=== PATIENT | female | born 1965 | race Two or more races ===

== ENCOUNTER 2016-10-09 04:08 | Emergency (ER) | payer OTHER ==
[~2016-10-09] VITALS: Ht 165.1 cm; Wt 72.6 kg
[~2016-10-09 04:08] MED LIST: OLME1TAB3 PO; SUMA5SPR
[2016-10-09 04:12] VITALS: BP 146/92
[2016-10-09] MEDS ORDERED: IBUPROFEN 400 MG TABLET ONE (04:28)
[2016-10-09] MEDS ORDERED: IBUPROFEN 400 MG TABLET PO ONE (04:30)
[2016-10-09] MEDS ORDERED: HYDROCODONE/APAP 5/325MG 1 EACH TABLET PO ONE (05:30)
== END 2016-10-09 05:29 | disposition home or self-care (01) ==
LOC: ER 04:13
DX: S52.501A Unspecified fracture of the lower end of right radius, initial encounter for closed fracture (principal); G43.909 Migraine, unspecified, not intractable, without status migrainosus; W01.0XXA Fall on same level from slipping, tripping and stumbling without subsequent striking against object, initial encounter; Y93.89 Activity, other specified; Y92.009 Unspecified place in unspecified non-institutional (private) residence as the place of occurrence of the external cause; Y99.9 Unspecified external cause status
CPT/HCPCS: 29125; 73110; 99284; A4606; Z7610

== ENCOUNTER 2016-10-22 18:31 | Emergency (ER) | payer OTHER ==
[~2016-10-22] VITALS: Ht 162.6 cm; Wt 72.6 kg
--- NOTE | 2016-10-22 19:15 | NUR ---
PT BIB DAUGHTER C/O RIGHT HAND SWELLLING AND PAIN WITH CAST SINCE YESTERDAY, WORSE TODAY. HX R RADIAL FX WITH CAST X 1 WK. CAP REFILL WNL. PT AOX4 RR EVEN AND UNLABORED. NO SOB NOTED. NAD NOTED. NO NVD AT THIS TIME. PT PLACED ON MONITOR WAITING FOR MD LAWSON.
--- NOTE | 2016-10-22 20:17 | NUR ---
RIGHT CAST REMOVED PER MD ORDER. RIGHT 3IN VOLAR SPLINT PLACED PER MD ORDER.
[2016-10-22 20:18] VITALS: BP 153/90
== END 2016-10-22 20:28 | disposition home or self-care (01) ==
LOC: ER 18:32
DX: Z46.89 Encounter for fitting and adjustment of other specified devices (principal); I10 Essential (primary) hypertension; Z90.89 Acquired absence of other organs
CPT/HCPCS: 29125; 99283; A4606; Z7610

== ENCOUNTER 2018-09-27 18:01 | Emergency (ER) | payer OTHER ==
[~2018-09-27] VITALS: Ht 175.3 cm; Wt 74.8 kg
[~2018-09-27 18:01] MED LIST changes: +OLME1TAB22 PO; -OLME1TAB3 PO
[2018-09-27] MEDS ORDERED: ONDANSETRON HCL/PF 4 MG/2 ML VIAL ONE (18:34)
[2018-09-27] MEDS ORDERED: MORPHINE SULFATE INJ 4 MG/ML DISP.SYRIN ONE (18:35)
--- NOTE | 2018-09-27 20:00 | NUR ---
PT BIBF. C/O "HURT MY KNEE BY PUSHING MY SOFA AT HOME" VSS AOX4. AMBUALTORY W.ASSISTANCE. -SOB NOTED -DIZZY
[2018-09-27 20:44] VITALS: BP 150/89
== END 2018-09-27 20:44 | disposition home or self-care (01) ==
LOC: ER 18:01
DX: S83.8X2A Sprain of other specified parts of left knee, initial encounter (principal); I10 Essential (primary) hypertension; Z90.89 Acquired absence of other organs; X50.9XXA Other and unspecified overexertion or strenuous movements or postures, initial encounter; Y93.89 Activity, other specified; Y92.89 Other specified places as the place of occurrence of the external cause; Y99.8 Other external cause status
CPT/HCPCS: 29505; 73564; 99283; A4216; J2270; J2405